=== PATIENT | male | born 1990 ===

== ENCOUNTER 2016-07-23 10:28 | Emergency (ER) | payer BC, OTHER ==
--- NOTE | 2016-07-23 11:21 | ED ---
Lower Extremity - HPI Summary HPI Summary: 25 y/o male here c/o right knee, ankle and foot pain since last night when he slipped and fell outside in the his porch. He reports pain is not radiating, is throbbing 8-10. he reports he is able to apply pressure in the right LE but pain becomes more than 10-10. He denies any head or neck trauma. He has no other complaints. - History of Current Complaint Chief Complaint: UCLowerExtremity Stated Complaint: ANKLE INJURY Time Seen by Provider: 07/23/16 11:08 - Allergies/Home Medications Allergies/Adverse Reactions: Allergies Allergy/AdvReac Type Severity Reaction Status Date / Time No Known Allergies Allergy Verified 07/23/16 10:54 Home Medications: Home Medications Acetaminophen TAB* [Tylenol TAB*] 2 PRN 07/23/16 [History] PMH/Surg Hx/FS Hx/Imm Hx Endocrine/Hematology History: Denies: Hx Diabetes, Hx Thyroid Disease Cardiovascular History: Denies: Hx Hypertension Respiratory History: Denies: Hx Asthma, Hx Chronic Obstructive Pulmonary Disease (COPD) GI History: Denies: Hx Ulcer Infectious Disease History: No Infectious Disease History: Denies: Hx Clostridium Difficile, Hx Hepatitis, Hx Human Immunodeficiency Virus (HIV), Hx of Known/Suspected MRSA, Hx Shingles, Hx Tuberculosis, Hx Known/ Suspected VRE, Hx Known/Suspected VRSA, History Other Infectious Disease, Traveled Outside the in Last 30 Days - Social History Alcohol Use: Occasionally Substance Use Type: Reports: None Smoking Status (MU): Heavy Every Day Tobacco Smoker Amount Used/How Often: less than 1ppd Review of Systems Constitutional: Negative Eyes: Negative ENT: Negative Cardiovascular: Negative Respiratory: Negative Gastrointestinal: Negative Genitourinary: Negative Positive: Other - pain in the right knee, ankle and foot s/p fall Skin: Negative Neurological: Negative Psychological: Normal All Other Systems Reviewed And Are Negative: Yes Physical Exam - Summary Physical Exam Summary: Vital signs: reviewed General: Patient well developed and nourished male who is comfortable lying in stretcher with no signs of distress HEENT: within normal limits Lungs: CTA B/L CVS: S1 & S2 present. No murmurs appreciated. ABDOMEN: Soft, non-tender. No signs of distention. No rebound no guarding, and no masses palpated. Bowel sounds are normal. EXTREMITIES: right knee with decreased ROM secondary to pain, No deformity ecchymosis or swelling. right ankle and foot with no deformity ecchymosis. Positive slight swelling in the right lateral maleollus. NEURO: Alert and oriented x 3. No acute neurological deficits. Speech is normal and follows commands. SKIN: Dry and warm Triage Information Reviewed: Yes Vital Signs On Initial Exam: Initial Vitals Temp Pulse Resp Pulse Ox 99.2 F 96 18 95 07/23/16 10:48 07/23/16 10:48 07/23/16 10:48 07/23/16 10:48 Vital Signs Reviewed: Yes Diagnostics - Vital Signs Vital Signs Temp Pulse Resp Pulse Ox 07/23/16 10:48 99.2 F 96 18 95 - Laboratory Lab Statement: Any lab studies that have been ordered have been reviewed, and results considered in the medical decision making process. Lower Extremity Course/Dx - Course Assessment/Plan: 25 y/o male here c/o right knee, ankle and foot pain since last night when he slipped and fell outside in the his porch. He reports pain is not radiating, is throbbing 8-10. he reports he is able to apply pressure in the right LE but pain becomes more than 10-10. He denies any head or neck trauma. He has no other complaints. Knee x-ray impression: No FX or dislocation. Ankle x ray impression: No FX or dislocation. Foot x ray impression: No FX or dislocation. I gave patient Ibuprofen at the . Declined cori bandage and declined crutches and discharged home with f/u of PMD. If symptoms persist he should return to the or go to the ED for further assestment. I discussed all the findings and test results with the patient. Patient was instructed to return to the emergency room immediately if any of the symptoms return or worsens. Plan of care was discussed with the patient and understands and agrees. All questions were answered at patient satisfaction. There were no further complaints or concerns. Lung exam before discharge: CTA B /L. Good air exchange. No wheezing or crackles heard. CVS: S1 and S2 present. No murmurs appreciated. Patient is alert and oriented x 3. Patient is hemodynamically stable. Patient will be discharged home with follow up eligibility counselor in the next 2-3 days - Diagnoses Differential Diagnosis/HQI/PQRI: Positive: Bursitis, Cellulitis, Sprain, Strain , Tendonitis Provider Diagnoses: Knee sprain, Ankle sprain, Foot sprain Discharge - Discharge Plan Condition: Stable Disposition: HOME Patient Education Materials: Knee Sprain (ED), Ankle Sprain (ED), Foot Sprain ( ED) Forms: *Work Release Referrals: No Primary Care Phys,NOPCP [Primary Care Provider] - [facility] [place]Outside]
[2016-07-23] MEDS ORDERED: Ibuprofen TAB* 600 MG PO ONE (11:25)
--- NOTE | 2016-07-23 11:41 | RAD ---
HISTORY: Trauma, right ankle pain COMPARISONS: None VIEWS: 2, Frontal and lateral views of the right ankle FINDINGS: BONE DENSITY: Normal. BONES: There is no displaced fracture. JOINTS: There is no arthropathy. ALIGNMENT: There is no dislocation. SOFT TISSUES: Unremarkable. OTHER FINDINGS: None. IMPRESSION: NO ACUTE OSSEOUS INJURY. IF SYMPTOMS PERSIST, RECOMMEND REPEAT IMAGING.
--- NOTE | 2016-07-23 11:42 | RAD ---
INDICATION: Right knee pain COMPARISON: None TECHNIQUE: AP and lateral views were obtained. FINDINGS: The bony structures, joint spaces, and soft tissues are normal for age. IMPRESSION: NORMAL STUDY.
--- NOTE | 2016-07-23 11:42 | RAD ---
HISTORY: Trauma, right foot pain COMPARISONS: None VIEWS: 3, Frontal, lateral, and oblique views of the right foot FINDINGS: BONE DENSITY: Normal. BONES: There is no displaced fracture. JOINTS: There is no arthropathy. ALIGNMENT: There is no dislocation. SOFT TISSUES: Unremarkable. OTHER FINDINGS: None. IMPRESSION: NO ACUTE OSSEOUS INJURY. IF SYMPTOMS PERSIST, RECOMMEND REPEAT IMAGING.
== END 2016-07-23 12:09 | disposition home or self-care (01) ==
LOC: UCEAST 10:28
DX: S83.91XA Sprain of unspecified site of right knee, initial encounter (principal); S93.401A Sprain of unspecified ligament of right ankle, initial encounter; S93.601A Unspecified sprain of right foot, initial encounter; W01.0XXA Fall on same level from slipping, tripping and stumbling without subsequent striking against object, initial encounter; Y93.9 Activity, unspecified; Y92.008 Other place in unspecified non-institutional (private) residence as the place of occurrence of the external cause; F17.210 Nicotine dependence, cigarettes, uncomplicated
CPT/HCPCS: 99211; A9270-GY; G0463

== ENCOUNTER 2017-03-21 13:31 | Emergency (ER) | payer OTHER ==
[2017-03-21 13:39] VITALS: BP 139/71
[2017-03-21] MEDS ORDERED: Tetracaine 0.5% OPTH.SOL 4 ML* 1 DROP BTL RIGHT EYE ONE (14:20)
[2017-03-21] MEDS ORDERED: Tetan/Diph/Pertus SYR(Tdap)* 0.5 ML SYR(BOOSTRIX) use SYR IM ONE (14:22)
--- NOTE | 2017-04-18 18:15 | UC ---
Eye Complaint HPI - HPI Summary HPI Summary: Got rust in eye yesterday at work did use eye wash but feels like rust is still in the eye - History of Current Complaint Chief Complaint: UCEye Stated Complaint: FB IN EYE Time Seen by Provider: 03/21/17 14:13 Hx Obtained From: Patient Onset/Duration: Sudden Onset Timing: Constant Severity Initially: Mild Severity Currently: Mild Pain Intensity: 4 Pain Scale Used: Adult Non Verbal Location of Injury: Conjunctiva Character: Foreign Body Sensation Aggravating Factor(s): Nothing Alleviating Factor(s): Nothing Associated Signs And Symptoms: Positive: Drainage (Clear), Vision Impairment Right - Allergies/Home Medications Allergies/Adverse Reactions: Allergies Allergy/AdvReac Type Severity Reaction Status Date / Time No Known Allergies Allergy Verified 03/21/17 13:39 PMH/Surg Hx/FS Hx/Imm Hx Previously Healthy: Yes - Surgical History Surgical History: None - Family History Known Family History: Positive: None - Social History Occupation: Employed Full-time Lives: With Family Alcohol Use: Occasionally Substance Use Type: None Smoking Status (MU): Heavy Every Day Tobacco Smoker Amount Used/How Often: less than 1ppd Household Exposure Type: Cigarettes - Immunization History Hx Tetanus, Diphtheria Vaccination: Yes - but not up to date Vaccination Up to Date: No Review of Systems Constitutional: Negative Skin: Negative Eyes: Blurred Vision - od, Drainage - od, Eye Redness - od ENT: Negative Respiratory: Negative Cardiovascular: Negative Gastrointestinal: Negative Genitourinary: Negative Motor: Negative Neurovascular: Negative Musculoskeletal: Negative Neurological: Negative Psychological: Negative Is Patient Immunocompromised?: No All Other Systems Reviewed And Are Negative: Yes Physical Exam Triage Information Reviewed: Yes Appearance: Well-Appearing, No Pain Distress, Well-Nourished Vital Signs: Initial Vital Signs Temp 98.7 F 03/21/17 13:35 Pulse 81 03/21/17 13:35 Resp 18 03/21/17 13:35 BP 139/71 03/21/17 13:35 Pulse Ox 100 03/21/17 13:35 Vital Signs Reviewed: Yes Eye Exam: Other Eyes: Positive: Conjunctiva Inflamed - od, Discharge - od ENT Exam: Normal ENT: Positive: Normal ENT inspection, Hearing grossly normal, Pharynx normal. Negative: Nasal congestion, Nasal drainage, Tonsillar swelling, Tonsillar exudate, Trismus, Muffled voice, Hoarse voice, Dental tenderness, Sinus tenderness Dental Exam: Normal Neck exam: Normal Neck: Positive: Supple, Nontender, No Lymphadenopathy Respiratory Exam: Normal Respiratory: Positive: Chest non-tender, Lungs clear, Normal breath sounds, No respiratory distress, No accessory muscle use Cardiovascular Exam: Normal Cardiovascular: Positive: RRR, No Murmur, Pulses Normal, Brisk Capillary Refill Musculoskeletal Exam: Normal Musculoskeletal: Positive: Strength Intact, ROM Intact Neurological Exam: Normal Neurological: Positive: Alert, Muscle Tone Normal Psychological Exam: Normal Skin Exam: Normal Re-Evaluation - Re-Evaluation First Eval Change: Unchanged - unable to remove FB-call to Dr. Sauceda---will see patient at 1 pm in his office tomorrow Eye Complaint Course/Dx - Course Course Of Treatment: up date tetanus, cipro drops right eye, tylenol, ibuprofen for pain - Differential Dx/Diagnosis Provider Diagnoses: FB OD, update tetanus Discharge - Discharge Plan Condition: Stable Disposition: HOME Prescriptions: Ciprofloxacin 0.3% OPTH.URIEL* [Cipro 0.3% Opth*] 1 drop RIGHT EYE QID #1 btl Patient Education Materials: Ibuprofen (By mouth), Diphtheria/Acellular Pertussis/Tetanus Booster Vaccine (By injection), How to Use Eye Drops (ED), Eye Foreign Body (ED) Referrals: Parth Sauceda MD [Medical Doctor] - 03/22/17 1:00 pm
== END 2017-03-21 14:44 | disposition home or self-care (01) ==
LOC: UCEAST 13:31
DX: T15.91XA Foreign body on external eye, part unspecified, right eye, initial encounter (principal); X58.XXXA Exposure to other specified factors, initial encounter; Y93.9 Activity, unspecified; Y92.9 Unspecified place or not applicable; Z23 Encounter for immunization; F17.210 Nicotine dependence, cigarettes, uncomplicated
CPT/HCPCS: 90471; 90715; 99212; A9270-GY; G0463